=== PATIENT | female | born 1965 | race Caucasian/White ===

== ENCOUNTER 2018-07-14 07:07 | Emergency (ER) | payer MEDICAID, MEDICARE ==
[~2018-07-14] VITALS: Ht 160 cm; Wt 85.3 kg
[2018-07-14 07:08] VITALS: BP 156/73
[2018-07-14] MEDS ORDERED: INSULIN REGULAR 100 UNITS/ML, 3ML VIAL ONE (07:33)
[2018-07-14 08:05] LABS: BASOPHILS # (AUTO) 0.05 x10^3/uL (0-0.1); BASOPHILS % (AUTO) 1 % (0-1); EOSINOPHILS # (AUTO) 0.55 x10^3/uL (0-0.4); EOSINOPHILS % (AUTO) 6 % (1-7); LYMPHOCYTES # (AUTO) 2.48 x10^3/uL (1-3.4); LYMPHOCYTES % (AUTO) 25 % (22-44); MD NO; MEAN CORPUSCULAR HEMOGLOBIN 30.4 pg (27.0-34.8); MEAN CORPUSCULAR HGB CONC 33.4 g/dL (32.4-35.8); MEAN CORPUSCULAR VOLUME 90.9 fL (80-100); MEAN PLATELET VOLUME 8.1 fL (7.4-10.4); MONOCYTES # (AUTO) 0.67 x10^3/uL (0.2-0.8); MONOCYTES % (AUTO) 7 % (2-9); NEUTROPHILS # (AUTO) 6.22 x10^3/uL (1.8-6.8); NEUTROPHILS % (AUTO) 62 % (42-75); PLATELET COUNT 247 x10^3/uL (130-400); RED BLOOD COUNT 4.27 x10^6/uL (3.82-5.3); RED CELL DISTRIBUTION WIDTH 12.8 % (9.6-15.2)
[2018-07-14 08:15] LABS: ALBUMIN 3.5 g/dL (3.4-5.0); ANION GAP 10 mmol/L (5-15); CALCIUM 8.5 mg/dL (8.5-10.1); CHLORIDE 104 mmol/L (98-107); CREATININE 0.77 mg/dL (0.55-1.02)
[2018-07-14 08:40] LABS: CULTURE INDICATED? NO; HCG UR SG 1.025 (1.003-1.030); MICROSCOPIC NOT IND
[2018-07-14] MEDS ORDERED: INSULIN REGULAR 100 UNITS/ML, 3ML VIAL SQ-INSULIN ONE (11:00)
== END 2018-07-14 09:35 | disposition home or self-care (01) ==
LOC: ED 09:15
DX: E03.1 Congenital hypothyroidism without goiter (principal); E11.65 Type 2 diabetes mellitus with hyperglycemia; I10 Essential (primary) hypertension; Z76.0 Encounter for issue of repeat prescription
CPT/HCPCS: 80048; 81003; 81025; 82040; 82962; 85025; 96372; 99283

== ENCOUNTER 2018-07-19 18:34 | Emergency (ER) | payer SELFPAY ==
[~2018-07-19] VITALS: Ht 160 cm; Wt 84.0 kg
[2018-07-19 19:13] LABS: BASOPHILS # (AUTO) 0.09 x10^3/uL (0-0.1); BASOPHILS % (AUTO) 1 % (0-1); EOSINOPHILS # (AUTO) 0.27 x10^3/uL (0-0.4); EOSINOPHILS % (AUTO) 2 % (1-7); LYMPHOCYTES # (AUTO) 4.11 x10^3/uL (1-3.4); LYMPHOCYTES % (AUTO) 35 % (22-44); MD NO; MEAN CORPUSCULAR HEMOGLOBIN 31.1 pg (27.0-34.8); MEAN CORPUSCULAR HGB CONC 34.1 g/dL (32.4-35.8); MEAN CORPUSCULAR VOLUME 91.4 fL (80-100); MEAN PLATELET VOLUME 7.9 fL (7.4-10.4); MONOCYTES # (AUTO) 0.75 x10^3/uL (0.2-0.8); MONOCYTES % (AUTO) 6 % (2-9); NEUTROPHILS # (AUTO) 6.55 x10^3/uL (1.8-6.8); NEUTROPHILS % (AUTO) 56 % (42-75); PLATELET COUNT 326 x10^3/uL (130-400); RED BLOOD COUNT 4.27 x10^6/uL (3.82-5.3); RED CELL DISTRIBUTION WIDTH 13.1 % (9.6-15.2)
[2018-07-19 19:23] LABS: ALBUMIN 3.6 g/dL (3.4-5.0); ANION GAP 11 mmol/L (5-15); CHLORIDE 105 mmol/L (98-107)
[2018-07-19 19:24] LABS: CREATININE 1.14 mg/dL (0.55-1.02)
[2018-07-19] MEDS ORDERED: LIDOCAINE-MPF 1%, 2ML ONE (19:57)
[2018-07-19] MEDS ORDERED: CEFTRIAXONE 1,000 MG ONE (19:57)
[2018-07-19] MEDS ORDERED: CEFTRIAXONE 1,000 MG IM ONE (20:00)
[2018-07-19 20:01] VITALS: BP 132/77
== END 2018-07-19 20:29 | disposition home or self-care (01) ==
LOC: ED 18:53
DX: S91.301A Unspecified open wound, right foot, initial encounter (principal); L03.115 Cellulitis of right lower limb; E11.9 Type 2 diabetes mellitus without complications; I10 Essential (primary) hypertension; E03.9 Hypothyroidism, unspecified; X58.XXXA Exposure to other specified factors, initial encounter; Y93.89 Activity, other specified; Y92.89 Other specified places as the place of occurrence of the external cause; Y99.8 Other external cause status
CPT/HCPCS: 36415; 73630; 80048; 82040; 83605; 85025; 87040; 93971; 96372; 99284; J0696

== ENCOUNTER 2019-06-17 07:12 | Emergency (ER) | payer SELFPAY ==
[~2019-06-17] VITALS: Ht 160 cm; Wt 84.0 kg
[2019-06-17 07:18] VITALS: BP 131/72
--- NOTE | 2019-06-17 07:26 | NUR ---
Pt pushed in wheelchair from triage. DON.
--- NOTE | 2019-06-17 07:44 | NUR ---
Pt presents to ED with c/o wound to posterior right foot at base of 1st toe after "stepping on a nail yesterday while doing laundry." Pt also presents with a wound to anterior right foot at base of 3rd, 4th, and 5th toe from "a flip flop about two or three weeks ago." Pt has PMH of DM. NADN. Call light within reach. Bedrail up x 1. No other needs expressed.
[2019-06-17] MEDS ORDERED: IBUPROFEN 800 MG TABLET PO ONE (08:00)
[2019-06-17] MEDS ORDERED: IBUPROFEN 800 MG TABLET ONE (08:00)
[2019-06-17] MEDS ORDERED: DIPH,PERTUSS(ACELL),TET VAC/PF 0.5 ML IM-VACC ONE ×2 (08:00→08:03)
[2019-06-17] MEDS ORDERED: NEOSPORIN OINT. PKT 1 PACKET ONE (08:04)
--- NOTE | 2019-06-17 09:06 | NUR ---
Patient given discharge instructions and they have confirmed that they understand the instructions. Patient ambulatory with steady gait. Pt left with Rx, d/c paperwork, and all personal belongings. NADN. No other needs expressed.
== END 2019-06-17 09:08 | disposition home or self-care (01) ==
LOC: ED 08:25
DX: S91.131A Puncture wound without foreign body of right great toe without damage to nail, initial encounter (principal); E11.9 Type 2 diabetes mellitus without complications; I10 Essential (primary) hypertension; E03.9 Hypothyroidism, unspecified; Z87.891 Personal history of nicotine dependence; X58.XXXA Exposure to other specified factors, initial encounter; Y93.89 Activity, other specified; Y92.009 Unspecified place in unspecified non-institutional (private) residence as the place of occurrence of the external cause; Y99.8 Other external cause status
CPT/HCPCS: 82962; 90471; 90715